=== PATIENT | female | born 1970 | race Caucasian/White ===

== ENCOUNTER → 2016-03-11 | Outpatient (CLI) | payer OTHER ==
--- NOTE | 2016-03-11 14:15 | MA ---
Screening Digital Mammogram With Tomosynthesis Clinical Indications: Routine screening. Technique: Standard digital cephalocaudal and tomosynthesis mediolateral oblique projections are obt ained. The digital images are processed by the [employer] computer aided detection system. Comparison: February 2015, November 2013, October 2012 and July 2011 Breast density: C; The breast tissue is heterogeneously dense, which could obscure detection of small masses. Findings: CAD was reviewed. Possible small new spiculated nodule deep in the slightly outer left porter st (tomosynthesis view 16 ). The remainder of the left and right breast are stable. Impression: Possible small spiculated nodule left breast. Recommendation: Ultrasound. If unhelpful, then proceed to diagnostic mammography. BI-RADS 0: Needs additional imaging evaluation, left breast. Please fax a written or electronic order for a diagnostic mammogram and ultrasound to [phone]. [facility] will send a result letter to the patient. Negative mammography should not preclude additional workup of a clinically suspicious finding. The patient's information is entered into a reminder system with a target due date for her next mammo gram.
== END ==
LOC: FIMAGING 12:05
DX: Z12.31 Encounter for screening mammogram for malignant neoplasm of breast (principal)
CPT/HCPCS: G0202

== ENCOUNTER → 2016-03-13 | Outpatient (CLI) | payer OTHER ==
--- NOTE | 2016-03-13 09:15 | US ---
Ultrasound left breast History: Possible small new spiculated nodule lateral left breast at mammography. Findings: Ultrasound of the lateral left breast demonstrates underlying mild fibrocystic condition. T here is a cluster of tiny cysts that in total measure about 8 x 4 x 6 mm at the 3 o'clock position le ft breast about 8 cm from the nipple that could potentially correspond to the abnormality seen at hiram mography. No significant solid or dominant cystic mass is appreciated otherwise. Impression: 1. Fibrocystic condition with cluster of tiny benign-appearing cysts 3 o'clock position left breast a bout 8 cm from the nipple. It is indeterminate if this corresponds with the finding seen at mammograp hy. A BB was placed on the skin surface overlying this abnormality. Subsequent additional mammographi c views were then performed. BI-RADS 0
--- NOTE | 2016-03-13 09:53 | MA ---
Diagnostic Digital Mammogram left Breast Clinical Indications: Fibrocystic change noted 3 o'clock position left breast at ultrasound. Indeterm inate if this corresponds with abnormality seen at mammography. Technique: Compression was obtained in CC, mediolateral oblique, and 90-degree lateral views of the left breast with a BB in place from prior ultrasound. This examination is processed by the [employer] ter-aided detection system. Comparison: Prior ultrasound performed earlier today the prior mammographic studies from March 11 and dating back to July 21, 2011 Breast density: C; The breasts are heterogeneously dense, which may obscure small masses. Findings: CAD was reviewed. In the cc view, the density noted previously at mammography does appear to correspond with the findin g at the 3 o'clock position with BB overlying the abnormality identified at ultrasound compatible wit h fibrocystic change. However, the BB over fibrocystic change in the MLO and 90 degrees lateral proje ctions corresponds to a different focus with respect to the spiculated lesion that was suspected on p rior mammographic study. On today's imaging, this abnormality adjacent to the chest wall in the MLO p rojection and 90 degrees lateral view probably just represents some ectopic breast parenchymal tissue in this location. This area was normal under ultrasound. Considering the mammographic appearance, th is is felt be probably benign. Incidental milk of calcium is noted within the lower left breast. Impression: 1. The abnormality at mammography in the MLO and 90 degrees lateral projections just below the nipple line near the chest wall has a probably benign appearance on additional views obtained. This area is better visualized on the more recent exam when compared to the prior studies. 2. The density in the lateral left breast in cc projection corresponds to the fibrocystic change iden tified at ultrasound. Recommendation: 6 month mammogram followup of the left breast utilizing cc and MLO projections is rec ommended to confirm stability of the presumed ectopic breast tissue outer left breast just below the nipple line. No abnormality was identified in this location at ultrasound. BI-RADS 3 Dense mammographic pattern limits the sensitivity of mammography in this patient. If there is a clini jeremy palpable abnormality, recommend additional imaging with ultrasound, if clinically indicated. [facility] will send a result letter to the patient. The results of this study were rev iewed with the patient. Negative mammography should not preclude additional workup of a clinically suspicious finding.
== END ==
LOC: FIMAGING 08:17
PROVIDERS: ATTEND Obstetrics & Gynecology
DX: N63 Unspecified lump in breast (principal)
CPT/HCPCS: G0206

== ENCOUNTER → 2016-09-26 | Outpatient (CLI) | payer OTHER | LOC: BMCIMAGING 08:48 | DX: Z12.39 Encounter for other screening for malignant neoplasm of breast (principal); N63 Unspecified lump in breast | CPT/HCPCS: G0206 ==

== ENCOUNTER → 2017-04-21 | Outpatient (CLI) | payer OTHER | LOC: FIMAGING 12:22 | PROVIDERS: ATTEND Obstetrics & Gynecology | DX: N92.1 Excessive and frequent menstruation with irregular cycle (principal) ==

== ENCOUNTER → 2018-05-06 | Outpatient (CLI) | payer OTHER | LOC: FIMAGING 08:34 | PROVIDERS: ATTEND Obstetrics & Gynecology | DX: Z12.31 Encounter for screening mammogram for malignant neoplasm of breast (principal) ==